=== PATIENT | female | born 1935 | race Caucasian/White ===

== ENCOUNTER 2021-10-01 18:16 | Emergency (ER) | payer MEDICARE ==
--- NOTE | 2021-10-01 18:22 | EDM.PDOC ---
<Wilmar Thompson - Last Filed: 10/01/21 23:51> ED HPI GENERAL MEDICAL PROBLEM - General Chief Complaint: General Stated Complaint: FELL IN PARKING LOT Time Seen by Provider: 10/01/21 18:21 - History of Present Illness INITIAL COMMENTS - FREE TEXT/NARRATIVE: History of present illness: [] My partner evaluated this patient. He found her outside on the ground beside her car door. He did not know exactly how long she was on the ground but she says she thinks she was possibly unconscious for 2 minutes after fall trying to get into her truck. She is visiting her who is patient in the hospital. See the hospital course for further assessment. The daughter came later and verified that this patient was slipping and had lost her balance or her knee had given out. She was hanging at the door when daughter got there. Patient had a little bit of low oxygen at 93% was tachycardic so Dr. Parks initiated work- up for the end of his shift. Review of systems: As per history of present illness and below otherwise all systems reviewed and negative. Past medical history: As per history of present illness and as reviewed below otherwise noncontributory. Surgical history: As per history of present illness and as reviewed below otherwise noncontributory. Social history: No reported history of drug or alcohol abuse. Family history: As per history of present illness and as reviewed below otherwise noncontributory. Physical exam: Constitutional - well developed, well-nourished and in no acute distress HEENT - normocephalic, no evidence of trauma - external nose and mouth normal - no mass in neck and no JVD - mucosae moist EYES - full EOM, PERRL, no icterus - no evidence of inflammation, injection, or drainage Respiratory - no respiratory distress, equal bilateral expansion, lungs clear to auscultation and no abnormal lung sounds Cardiovascular - Regular Rhythm with S1 and S2 appreciated and no murmur, gallop or rub. GI - abdomen soft without distension or organomegaly - normal bowel sounds - no guard or rebound Musculoskeletal no gross deformity of long bones or joints - no tenderness, swelling or edema Neurologic - Alert and oriented times four - CN II-XII grossly intact - motor sensory and coordination symmetrically normal Psychiatric - appropriate mood and affect with normal thought content Hematologic - No petechiae or purpura - mucosa appropriate color and sclera not pale - normal nail bed color and refill Integument - no rash or evidence of trauma - normal turgor Diagnostics: [] Therapeutics: [] Impression: [] Plan: [] Definitive disposition and diagnosis as appropriate pending reevaluation and review of above. - Related Data Allergies Allergy/AdvReac Type Severity Reaction Status Date / Time No Known Allergies Allergy Verified 10/01/21 18:33 Home Meds: Home Meds Fenofibrate 1 tab PO DAILY 11/13/15 [History] Omeprazole 1 tab PO DAILY 11/13/15 [History] PARoxetine HCl [Paroxetine HCl] 1 tab PO DAILY 11/13/15 [History] #1 Interpretation EKG Interpretation Comments: EKG performed 10/01/2021 at 7:29 PM shows a sinus tachycardia heart rate 104 UT 207 QT 482 axis -58 there is left ventricular hypertrophy and possible anterolateral infarct with loss of R waves. There is no prior for comparison. Impression no obvious acute injury but evidence of prior coronary vessel disease. Course - Re-Assessments/Exams Free Text/Narrative Re-Assessment/Exam: 10/01/21 19:38 Patient was assigned to me at the end of my partner shift at 7 PM. She was found on the parking lot outside of her vehicle. Her daughter says that she saw her mother hanging on she had slipped her knee giving out and she came around the car and when she got there her mother was on the ground. Her daughter is a witness that shows that she was not on the ground for more than 2 minutes. The patient thinks he may have hit her head and lost consciousness or lost consciousness after this exciting episode of losing her balance and holding onto the door handle for a bit Plan to complete the work-up initiated by my partner and then to move on from there. She may likely be discharged everything comes back okay.. 10/01/21 23:51 My clinical diagnosis is non-STEMI. Discussed with at [facility] because [facility] and [facility] had no beds. Dr. Aguilar wants the patient to have Apra spread and heparin and be sent to their telemetry unit for further study. Patient remained stable Departure - Departure Disposition: DC/Tfer to Acute Hospital 02 Condition: Good Clinical Impression: Non-STEMI (non-ST elevated myocardial infarction) - Discharge Information Referrals: Rhona Bean PA [Primary Care Provider] - Forms: ED Department Discharge <Kulwinder Parks - Last Filed: 10/02/21 18:02> ED HPI GENERAL MEDICAL PROBLEM - General Source of Information: Reports: Patient - History of Present Illness INITIAL COMMENTS - FREE TEXT/NARRATIVE: HPI: Patient presents when he was found outside on the ice outside of her car. Patient was visiting her in the hospital and states when she went to get into the car she could not get solid footing and she fell. She denies any head trauma. She is not complaining of the areas of pain. She states she just could not get up. She thinks she was down there just for a couple of minutes. Patient denies any chest pain or shortness of breath. No recent fevers or chills. No vomiting or diarrhea. No recent red or black stools. No lightheadedness or dizziness prior to the fall. She said she simply slipped CONSTITUTIONAL: well appearing in no acute distress SKIN: Warm, dry, and intact without rash HENT: Normocephalic, atraumatic, PULMONARY: clear to ausculation bilaterally. No rales, rhonchi, wheezing CARDIOVASCULAR: regular rate, No murmur, rubs, or gallops GASTROINTESTINAL: soft, nondistended, nontender NEUROLOGIC: normal speech, II-XII intact. light touch/5/5 power equal and symmetric in upper and lower extremities without deficit MUSCULOSKELETAL: no gross deformities, atraumatic. No evidence of head trauma. Midline cervical thoracic or lumbar vertebra without tenderness. No long bony tenderness PSYCHIATRIC: normal mood and affect ED course: Patient presented to the emergency department as outlined above. The patient did not have any traumatic injuries that were noted. There is no premonitory signs or symptoms preceding the fall. The patient however, did have some mild hypoxia and tachycardia thus work-up initiated.. SBAR 7pm Thompson pending workup, treatment, dispo Past Medical History Cardiovascular History: Reports: Other (See Below) Other Cardiovascular History: Hypertriglyceridemia Gastrointestinal History: Reports: Gastritis, GERD Musculoskeletal History: Reports: Fracture Other Musculoskeletal History: hx: fracture Right wrist closed reduction Psychiatric History: Reports: Depression - Past Surgical History GI Surgical History: Reports: Colonoscopy, EGD ED ROS GENERAL - Review of Systems Review Of Systems: See Below (see thompson dictation) Constitutional: Reports: No Symptoms ED EXAM, GENERAL - Physical Exam Exam: See Below Free Text/Narrative:: see dictation Course - Vital Signs Last Recorded V/S: Last Vital Signs Temp 35.7 C L 10/01/21 18:22 Pulse 101 H 10/01/21 23:41 Resp 18 10/01/21 23:41 BP 132/91 H 10/01/21 23:41 Pulse Ox 95 10/01/21 23:41 - Orders/Labs/Meds Orders: Active Orders 24 hr Category Date Time Status CULTURE URINE [MREF] Stat Lab 10/01/21 20:45 Received Saline Lock Insert [OM.PC] Stat Oth 10/01/21 18:54 Ordered Labs: Laboratory Tests 10/01/21 10/01/21 10/01/21 Range/Units 00:01 19:23 19:23 WBC (4.0-11.0) K/uL RBC (4.30-5.90) M/uL Hgb (12.0-16.0) g/dL Hct (36.0-46.0) % MCV (80.0-98.0) fL MCH (27.0-32.0) pg MCHC (31.0-37.0) g/dL RDW Std Deviation (28.0-62.0) fl RDW Coeff of Dylon (11.0-15.0) % Plt Count (150-400) K/uL MPV (7.40-12.00) fL Neut % (Auto) (48.0-80.0) % Lymph % (Auto) (16.0-40.0) % [place] % (Auto) (0.0-15.0) % Eos % (Auto) (0.0-7.0) % Baso % (Auto) (0.0-1.5) % Neut # (Auto) (1.4-5.7) K/uL Lymph # (Auto) (0.6-2.4) K/uL [place] # (Auto) (0.0-0.8) K/uL Eos # (Auto) (0.0-0.7) K/uL Baso # (Auto) (0.0-0.1) K/uL Nucleated RBC % /100WBC Nucleated RBCs # K/uL INR 0.99 APTT 23.8 (18.6-31.3) SEC Sodium 139 (136-145) mmol/L Potassium 4.2 (3.5-5.1) mmol/L Chloride 103 (98-107) mmol/L Carbon Dioxide 25.0 (21.0-32.0) mmol/L BUN 21 H (7.0-18.0) mg/dL Creatinine 1.2 H (0.6-1.0) mg/dL Est Cr Clr Drug Dosing 35.20 mL/min Estimated GFR (MDRD) 42.8 ml/min Glucose 116 H (74-106) mg/dL Calcium 9.3 (8.5-10.1) mg/dL Total Bilirubin 0.3 (0.2-1.0) mg/dL AST 21 (15-37) IU/L ALT 24 (14-63) IU/L Alkaline Phosphatase 35 L (46-116) U/L Creatine Kinase 110 (26-308) U/L Troponin I 0.371 H* (0.000-0.056) ng/mL B-Natriuretic Peptide (<100) PG/ML Total Protein 7.3 (6.4-8.2) g/dL Albumin 4.0 (3.4-5.0) g/dL Globulin 3.3 (2.6-4.0) g/dL Albumin/Globulin Ratio 1.2 (0.9-1.6) Urine Color Urine Appearance Urine pH (5.0-8.0) Ur Specific [place] (1.001-1.035) Urine Protein (NEGATIVE) mg/dL Urine Glucose (UA) (NEGATIVE) mg/dL Urine Ketones (NEGATIVE) mg/dL Urine Occult Blood (NEGATIVE) Urine Nitrite (NEGATIVE) Urine Bilirubin (NEGATIVE) Urine Urobilinogen (<2.0) EU/dL Ur Leukocyte Esterase (NEGATIVE) Urine RBC (0-2/HPF) Urine WBC (0-5/HPF) Ur Epithelial Cells (NONE-FEW) Urine Bacteria (NEGATIVE) SARS-CoV-2 RNA (JOHNNY) (NEGATIVE) 10/01/21 10/01/21 10/01/21 Range/Units 19:23 19:23 19:35 WBC 5.40 (4.0-11.0) K/uL RBC 4.85 (4.30-5.90) M/uL Hgb 15.0 (12.0-16.0) g/dL Hct 44.5 (36.0-46.0) % MCV 91.8 (80.0-98.0) fL MCH 30.9 (27.0-32.0) pg MCHC 33.7 (31.0-37.0) g/dL RDW Std Deviation 45.1 (28.0-62.0) fl RDW Coeff of [place] 14 (11.0-15.0) % Plt Count 209 (150-400) K/uL MPV 10.90 (7.40-12.00) fL Neut % (Auto) 72.2 (48.0-80.0) % Lymph % (Auto) 21.1 (16.0-40.0) % [place] % (Auto) 5.2 (0.0-15.0) % Eos % (Auto) 1.1 (0.0-7.0) % Baso % (Auto) 0.4 (0.0-1.5) % Neut # (Auto) 3.9 (1.4-5.7) K/uL Lymph # (Auto) 1.1 (0.6-2.4) K/uL [place] # (Auto) 0.3 (0.0-0.8) K/uL Eos # (Auto) 0.1 (0.0-0.7) K/uL Baso # (Auto) 0.0 (0.0-0.1) K/uL Nucleated RBC % 0.0 /100WBC Nucleated RBCs # 0 K/uL INR APTT (18.6-31.3) SEC Sodium (136-145) mmol/L Potassium (3.5-5.1) mmol/L Chloride (98-107) mmol/L Carbon Dioxide (21.0-32.0) mmol/L BUN (7.0-18.0) mg/dL Creatinine (0.6-1.0) mg/dL Est Cr Clr Drug Dosing mL/min Estimated GFR (MDRD) ml/min Glucose (74-106) mg/dL Calcium (8.5-10.1) mg/dL Total Bilirubin (0.2-1.0) mg/dL AST (15-37) IU/L ALT (14-63) IU/L Alkaline Phosphatase (46-116) U/L Creatine Kinase (26-308) U/L Troponin I (0.000-0.056) ng/mL B-Natriuretic Peptide 55 (<100) PG/ML Total Protein (6.4-8.2) g/dL Albumin (3.4-5.0) g/dL Globulin (2.6-4.0) g/dL Albumin/Globulin Ratio (0.9-1.6) Urine Color Urine Appearance Urine pH (5.0-8.0) Ur Specific [place] (1.001-1.035) Urine Protein (NEGATIVE) mg/dL Urine Glucose (UA) (NEGATIVE) mg/dL Urine Ketones (NEGATIVE) mg/dL Urine Occult Blood (NEGATIVE) Urine Nitrite (NEGATIVE) Urine Bilirubin (NEGATIVE) Urine Urobilinogen (<2.0) EU/dL Ur Leukocyte Esterase (NEGATIVE) Urine RBC (0-2/HPF) Urine WBC (0-5/HPF) Ur Epithelial Cells (NONE-FEW) Urine Bacteria (NEGATIVE) SARS-CoV-2 RNA (JOHNNY) NEGATIVE (NEGATIVE) 10/01/21 10/01/21 Range/Units 20:45 22:28 WBC (4.0-11.0) K/uL RBC (4.30-5.90) M/uL Hgb (12.0-16.0) g/dL Hct (36.0-46.0) % MCV (80.0-98.0) fL MCH (27.0-32.0) pg MCHC (31.0-37.0) g/dL RDW Std Deviation (28.0-62.0) fl RDW Coeff of Dylon (11.0-15.0) % Plt Count (150-400) K/uL MPV (7.40-12.00) fL Neut % (Auto) (48.0-80.0) % Lymph % (Auto) (16.0-40.0) % [place] % (Auto) (0.0-15.0) % Eos % (Auto) (0.0-7.0) % Baso % (Auto) (0.0-1.5) % Neut # (Auto) (1.4-5.7) K/uL Lymph # (Auto) (0.6-2.4) K/uL [place] # (Auto) (0.0-0.8) K/uL Eos # (Auto) (0.0-0.7) K/uL Baso # (Auto) (0.0-0.1) K/uL Nucleated RBC % /100WBC Nucleated RBCs # K/uL INR APTT (18.6-31.3) SEC Sodium (136-145) mmol/L Potassium (3.5-5.1) mmol/L Chloride (98-107) mmol/L Carbon Dioxide (21.0-32.0) mmol/L BUN (7.0-18.0) mg/dL Creatinine (0.6-1.0) mg/dL Est Cr Clr Drug Dosing mL/min Estimated GFR (MDRD) ml/min Glucose (74-106) mg/dL Calcium (8.5-10.1) mg/dL Total Bilirubin (0.2-1.0) mg/dL AST (15-37) IU/L ALT (14-63) IU/L Alkaline Phosphatase (46-116) U/L Creatine Kinase (26-308) U/L Troponin I 4.075 H* (0.000-0.056) ng/mL B-Natriuretic Peptide (<100) PG/ML Total Protein (6.4-8.2) g/dL Albumin (3.4-5.0) g/dL Globulin (2.6-4.0) g/dL Albumin/Globulin Ratio (0.9-1.6) Urine Color YELLOW Urine Appearance HAZY Urine pH 6.0 (5.0-8.0) Ur Specific [place] 1.025 (1.001-1.035) Urine Protein NEGATIVE (NEGATIVE) mg/dL Urine Glucose (UA) NEGATIVE (NEGATIVE) mg/dL Urine Ketones NEGATIVE (NEGATIVE) mg/dL Urine Occult Blood NEGATIVE (NEGATIVE) Urine Nitrite NEGATIVE (NEGATIVE) Urine Bilirubin NEGATIVE (NEGATIVE) Urine Urobilinogen 0.2 (<2.0) EU/dL Ur Leukocyte Esterase TRACE H (NEGATIVE) Urine RBC 0-3 (0-2/HPF) Urine WBC 0-2 (0-5/HPF) Ur Epithelial Cells OCCASIONAL (NONE-FEW) Urine Bacteria RARE (NEGATIVE) SARS-CoV-2 RNA (JOHNNY) (NEGATIVE) Meds: Medications Discontinued Medications Generic Name Dose Route Start Last Admin Trade Name Freq PRN Reason Stop Dose Admin Aspirin 324 mg 10/01/21 23:40 10/01/21 23:49 Aspirin 81 Mg Tab.Chew PO 10/01/21 23:41 324 mg ONETIME ONE Administration Heparin Sodium (Porcine) 4,860 units 10/01/21 23:49 10/02/21 00:04 Heparin Sodium 5,000 Units/Ml Vial IVPUSH 10/01/21 23:50 4,860 units .BOLUS ONE Administration Sodium Chloride 1,000 mls @ 999 mls/hr 10/01/21 18:56 10/01/21 19:31 Normal Saline IV 10/01/21 19:56 999 mls/hr .BOLUS ONE Administration Heparin Sodium/Sodium Chloride 500 mls @ 19.595 mls/hr 10/01/21 23:50 10/02/21 00:04 Heparin 25,000 Units In 1/2 Ns 500 Ml IV 10/03/21 01:20 12 units/kg/hr STAT STA 19.595 mls/hr Administration 12 UNITS/KG/HR Metoprolol Tartrate 5 mg/ 55 mls @ 100 mls/hr 10/02/21 00:17 Sodium Chloride IV 10/02/21 00:49 ONETIME ONE Sodium Chloride 10 ml 10/01/21 18:54 10/01/21 20:06 Sodium Chloride 0.9% 10 Ml Syringe FLUSH 10 ml ASDIRECTED PRN Administration Keep Vein Open Sodium Chloride 2.5 ml 10/01/21 18:54 10/01/21 20:06 Sodium Chloride 0.9% 2.5 Ml Syringe FLUSH 2.5 ml ASDIRECTED PRN Administration Keep Vein Open Departure - Departure Time of Disposition: 20:20 - My Orders Last 24 Hours: My Active Orders 10/01/21 18:54 Saline Lock Insert [OM.PC] Stat 10/01/21 20:45 CULTURE URINE [MREF] Stat - Assessment/Plan Last 24 Hours: My Active Orders 10/01/21 18:54 Saline Lock Insert [OM.PC] Stat 10/01/21 20:45 CULTURE URINE [MREF] Stat
[2021-10-01] MEDS ORDERED: Sodium Chloride 0.9% 2.5 ML Syringe FLUSH PRN (18:54)
[2021-10-01] MEDS ORDERED: Sodium Chloride 0.9% 10 ML Syringe FLUSH PRN (18:54)
[2021-10-01] MEDS ORDERED: Sodium Chloride 0.9% 1,000 ML IV ONE (18:56)
[2021-10-01 19:55] LABS: POTASSIUM,K 4.2 mmol/L (3.5-5.1)
--- NOTE | 2021-10-01 20:12 | CR ---
INDICATION: Chest pain TECHNIQUE: One-view chest FINDINGS: The lungs are clear. The heart, mediastinum and pulmonary vessels are of normal size. There is no evidence of pleural disease. Mild S-curve scoliosis to the right in the mid to lower thoracic spine with compensatory leftward curve in the lumbar spine. IMPRESSION: Negative chest. Scoliosis. Dictated by Pérez Randall MD @ 10/01/2021 8:11:14 PM (Electronically Signed)
[2021-10-01] MEDS ORDERED: Aspirin 81 MG Tab.Chew PO ONE (23:40)
[2021-10-01] MEDS ORDERED: Heparin Sodium 5,000 Units/ML Vial IVPUSH ONE (23:49)
[2021-10-01] MEDS ORDERED: Heparin Sodium/0.45% NaCl 500 ML IV STA (23:50)
[2021-10-02 00:06] VITALS: BP 132/91; PULSE 101
[2021-10-02] MEDS ORDERED: Metoprolol Tartrate 5 MG in Sodium Chloride 0.9% 50 ML IV ONE (00:17)
== END 2021-10-02 00:36 ==
LOC: MW.ED 18:16
DX: I21.4 Non-ST elevation (NSTEMI) myocardial infarction (principal); Z20.822 Contact with and (suspected) exposure to COVID-19
CPT/HCPCS: 36415; 71045; 80053; 81001; 82550; 83880; 84484; 85025; 85610; 85730; 87086; 93005; 96365; 99285; A9270; J1644; J7030; U0002

== ENCOUNTER 2021-10-09 10:15 | Observation (INO) | payer MEDICARE, OTHER ==
--- NOTE | 2021-10-09 10:22 | EDM.PDOC ---
ED HPI GENERAL MEDICAL PROBLEM - General Stated Complaint: PT" CANT CATCH HER BREATH", TROUBLE BREATHING Time Seen by Provider: 10/09/21 10:16 Source of Information: Reports: Patient History Limitations: Reports: No Limitations - History of Present Illness INITIAL COMMENTS - FREE TEXT/NARRATIVE: 86-year-old female past history recent ER visit w/ elevated troponin on October 01 recently discharged from [facility] presents for shortness of breath. She was at [facility] from 10/01-; underwent cardiac cath which was negative for ACS, diagnosed with Takotsubo myocarditis. Seen at outpatient clinic yesterday for follow-up and labs. Patient notes that throughout her hospitalization she never did have chest pain. She notes that she was feeling shortness of breath, generalized weakness. She notes that symptoms came back a couple of days ago with decreased appetite, shortness of breath, anxiety. She describes it as a sensation of not being able to take a deep breath on. She denies any associated chest pain, denies pleuritic chest pain. Denies lower extremity swelling or pain. Denies nausea or vomiting. Denies abdominal pain. Denies fevers, cough. - Related Data Allergies Allergy/AdvReac Type Severity Reaction Status Date / Time No Known Allergies Allergy Verified 10/09/21 10:23 Home Meds: Home Meds Fenofibrate 1 tab PO DAILY 11/13/15 [History] PARoxetine HCl [Paroxetine HCl] 1 tab PO DAILY 11/13/15 [History] Aspirin 81 mg PO DAILY 10/09/21 [History] Escitalopram Oxalate 10 mg PO DAILY 10/09/21 [History] Latanoprost/Pf [Latanoprost 0.005% Eye Drop] 1 dose PO DAILY 10/09/21 [History] Losartan Potassium 25 mg PO DAILY 10/09/21 [History] PARoxetine [Paxil] 20 mg PO DAILY 10/09/21 [History] Rosuvastatin [Crestor] 20 mg PO DAILY 10/09/21 [History] carvediloL [Carvedilol] 6.25 mg PO DAILY 10/09/21 [History] lisinopriL [Lisinopril] 2.5 mg PO DAILY 10/09/21 [History] traZODone 50 mg PO DAILY 10/09/21 [History] Past Medical History HEENT History: Reports: None Cardiovascular History: Reports: High Cholesterol, Hypertension, Other (See Below) Other Cardiovascular History: Hypertriglyceridemia Respiratory History: Reports: None Gastrointestinal History: Reports: Gastritis, GERD Genitourinary History: Reports: None TEMPERATURE INSPECTOR History: Reports: None Musculoskeletal History: Reports: Arthritis, Fracture Other Musculoskeletal History: hx: fracture Right wrist closed reduction Neurological History: Reports: None Psychiatric History: Reports: Depression Endocrine/Metabolic History: Reports: None Hematologic History: Reports: None Immunologic History: Reports: None Oncologic (Cancer) History: Reports: None Dermatologic History: Reports: None - Infectious Disease History Infectious Disease History: Reports: None - Past Surgical History Head Surgeries/Procedures: Reports: None HEENT Surgical History: Reports: None Cardiovascular Surgical History: Reports: None Respiratory Surgical History: Reports: None GI Surgical History: Reports: Colonoscopy, EGD Female Surgical History: Reports: None Endocrine Surgical History: Reports: None Neurological Surgical History: Reports: None Musculoskeletal Surgical History: Reports: None Oncologic Surgical History: Reports: None Dermatological Surgical History: Reports: None Social & Family History - Family History Family Medical History: No Pertinent Family History - Caffeine Use Caffeine Use: Reports: None ED ROS GENERAL - Review of Systems Review Of Systems: Comprehensive ROS is negative, except as noted in HPI. ED EXAM, GENERAL - Physical Exam Exam: See Below Exam Limited By: No Limitations General Appearance: Alert, WD/WN, No Apparent Distress Ears: Hearing Grossly Normal Throat/Mouth: Normal Voice, No Airway Compromise Head: Atraumatic, Normocephalic Respiratory/Chest: No Respiratory Distress, Lungs Clear, Normal Breath Sounds, No Accessory Muscle Use Cardiovascular: Normal Peripheral Pulses, Regular Rate, Rhythm, No Edema Extremities: Normal Inspection Neurological: Alert, Normal Cognition Psychiatric: Normal Affect, Normal Mood Skin Exam: Warm, Dry, Intact, Normal Color #1 Interpretation EKG Date: 10/09/21 Time: 10: Rhythm: NSR Rate (Beats/Min): 68 [place]: Normal P-Wave: Present QRS: Normal ST-T: Normal QT: Normal SD/PQ Interval: 172 Comparison: No Change EKG Interpretation Comments: no acute ischemic changes Course - Vital Signs Last Recorded V/S: Last Vital Signs Temp 97.1 F 10/09/21 10:23 Pulse 63 10/09/21 11:42 Resp 17 10/09/21 10:23 BP 127/74 10/09/21 11:42 Pulse Ox 94 L 10/09/21 11:42 - Orders/Labs/Meds Orders: Active Orders 24 hr Category Date Time Status Saline Lock Insert [OM.PC] Stat Oth 10/09/21 10:35 Ordered Labs: Laboratory Tests 10/09/21 10/09/21 10/09/21 Range/Units 10:37 10:37 10:37 WBC 4.88 (4.0-11.0) K/uL RBC 4.48 (4.30-5.90) M/uL Hgb 13.7 (12.0-16.0) g/dL Hct 40.8 (36.0-46.0) % MCV 91.1 (80.0-98.0) fL MCH 30.6 (27.0-32.0) pg MCHC 33.6 (31.0-37.0) g/dL RDW Std Deviation 45.2 (28.0-62.0) fl RDW Coeff of Dylon 14 (11.0-15.0) % Plt Count 244 (150-400) K/uL MPV 11.00 (7.40-12.00) fL Neut % (Auto) 74.8 (48.0-80.0) % Lymph % (Auto) 16.4 (16.0-40.0) % [place] % (Auto) 6.8 (0.0-15.0) % Eos % (Auto) 1.2 (0.0-7.0) % Baso % (Auto) 0.8 (0.0-1.5) % Neut # (Auto) 3.7 (1.4-5.7) K/uL Lymph # (Auto) 0.8 (0.6-2.4) K/uL [place] # (Auto) 0.3 (0.0-0.8) K/uL Eos # (Auto) 0.1 (0.0-0.7) K/uL Baso # (Auto) 0.0 (0.0-0.1) K/uL Nucleated RBC % 0.0 /100WBC Nucleated RBCs # 0 K/uL INR APTT (18.6-31.3) SEC D-Dimer, Quantitative (0.0-0.50) mg/L FEU Sodium 143 (136-145) mmol/L Potassium 3.5 (3.5-5.1) mmol/L Chloride 108 H (98-107) mmol/L Carbon Dioxide 19.7 L (21.0-32.0) mmol/L BUN 15 (7.0-18.0) mg/dL Creatinine 0.8 (0.6-1.0) mg/dL Est Cr Clr Drug Dosing 49.00 mL/min Estimated GFR (MDRD) > 60.0 ml/min Glucose 117 H (74-106) mg/dL Calcium 9.0 (8.5-10.1) mg/dL Magnesium 2.2 (1.8-2.4) mg/dL Troponin I 0.079 H* (0.000-0.056) ng/mL B-Natriuretic Peptide 1581 H (<100) PG/ML TSH, Ultra Sensitive 2.41 (0.36-3.74) uIU/mL Urine Color Urine Appearance Urine pH (5.0-8.0) Ur Specific Leonard (1.001-1.035) Urine Protein (NEGATIVE) mg/dL Urine Glucose (UA) (NEGATIVE) mg/dL Urine Ketones (NEGATIVE) mg/dL Urine Occult Blood (NEGATIVE) Urine Nitrite (NEGATIVE) Urine Bilirubin (NEGATIVE) Urine Urobilinogen (<2.0) EU/dL Ur Leukocyte Esterase (NEGATIVE) Urine RBC (0-2/HPF) Urine WBC (0-5/HPF) Ur Epithelial Cells (NONE-FEW) Urine Bacteria (NEGATIVE) Urine Mucus (NONE-MOD) Urine Yeast SARS-CoV-2 RNA (JOHNNY) (NEGATIVE) 10/09/21 10/09/21 10/09/21 Range/Units 10:37 10:37 10:53 WBC (4.0-11.0) K/uL RBC (4.30-5.90) M/uL Hgb (12.0-16.0) g/dL Hct (36.0-46.0) % MCV (80.0-98.0) fL MCH (27.0-32.0) pg MCHC (31.0-37.0) g/dL RDW Std Deviation (28.0-62.0) fl RDW Coeff of Dylon (11.0-15.0) % Plt Count (150-400) K/uL MPV (7.40-12.00) fL Neut % (Auto) (48.0-80.0) % Lymph % (Auto) (16.0-40.0) % [place] % (Auto) (0.0-15.0) % Eos % (Auto) (0.0-7.0) % Baso % (Auto) (0.0-1.5) % Neut # (Auto) (1.4-5.7) K/uL Lymph # (Auto) (0.6-2.4) K/uL [place] # (Auto) (0.0-0.8) K/uL Eos # (Auto) (0.0-0.7) K/uL Baso # (Auto) (0.0-0.1) K/uL Nucleated RBC % /100WBC Nucleated RBCs # K/uL INR 1.01 APTT 23.4 (18.6-31.3) SEC D-Dimer, Quantitative 4.03 H (0.0-0.50) mg/L FEU Sodium (136-145) mmol/L Potassium (3.5-5.1) mmol/L Chloride (98-107) mmol/L Carbon Dioxide (21.0-32.0) mmol/L BUN (7.0-18.0) mg/dL Creatinine (0.6-1.0) mg/dL Est Cr Clr Drug Dosing mL/min Estimated GFR (MDRD) ml/min Glucose (74-106) mg/dL Calcium (8.5-10.1) mg/dL Magnesium (1.8-2.4) mg/dL Troponin I (0.000-0.056) ng/mL B-Natriuretic Peptide (<100) PG/ML TSH, Ultra Sensitive (0.36-3.74) uIU/mL Urine Color Urine Appearance Urine pH (5.0-8.0) Ur Specific Leonard (1.001-1.035) Urine Protein (NEGATIVE) mg/dL Urine Glucose (UA) (NEGATIVE) mg/dL Urine Ketones (NEGATIVE) mg/dL Urine Occult Blood (NEGATIVE) Urine Nitrite (NEGATIVE) Urine Bilirubin (NEGATIVE) Urine Urobilinogen (<2.0) EU/dL Ur Leukocyte Esterase (NEGATIVE) Urine RBC (0-2/HPF) Urine WBC (0-5/HPF) Ur Epithelial Cells (NONE-FEW) Urine Bacteria (NEGATIVE) Urine Mucus (NONE-MOD) Urine Yeast SARS-CoV-2 RNA (JOHNNY) NEGATIVE (NEGATIVE) 10/09/21 Range/Units 12:47 WBC (4.0-11.0) K/uL RBC (4.30-5.90) M/uL Hgb (12.0-16.0) g/dL Hct (36.0-46.0) % MCV (80.0-98.0) fL MCH (27.0-32.0) pg MCHC (31.0-37.0) g/dL RDW Std Deviation (28.0-62.0) fl RDW Coeff of Dylon (11.0-15.0) % Plt Count (150-400) K/uL MPV (7.40-12.00) fL Neut % (Auto) (48.0-80.0) % Lymph % (Auto) (16.0-40.0) % [place] % (Auto) (0.0-15.0) % Eos % (Auto) (0.0-7.0) % Baso % (Auto) (0.0-1.5) % Neut # (Auto) (1.4-5.7) K/uL Lymph # (Auto) (0.6-2.4) K/uL [place] # (Auto) (0.0-0.8) K/uL Eos # (Auto) (0.0-0.7) K/uL Baso # (Auto) (0.0-0.1) K/uL Nucleated RBC % /100WBC Nucleated RBCs # K/uL INR APTT (18.6-31.3) SEC D-Dimer, Quantitative (0.0-0.50) mg/L FEU Sodium (136-145) mmol/L Potassium (3.5-5.1) mmol/L Chloride (98-107) mmol/L Carbon Dioxide (21.0-32.0) mmol/L BUN (7.0-18.0) mg/dL Creatinine (0.6-1.0) mg/dL Est Cr Clr Drug Dosing mL/min Estimated GFR (MDRD) ml/min Glucose (74-106) mg/dL Calcium (8.5-10.1) mg/dL Magnesium (1.8-2.4) mg/dL Troponin I (0.000-0.056) ng/mL B-Natriuretic Peptide (<100) PG/ML TSH, Ultra Sensitive (0.36-3.74) uIU/mL Urine Color YELLOW Urine Appearance SLT CLOUDY Urine pH 5.5 (5.0-8.0) Ur Specific Leonard >= 1.030 (1.001-1.035) Urine Protein TRACE H (NEGATIVE) mg/dL Urine Glucose (UA) NEGATIVE (NEGATIVE) mg/dL Urine Ketones NEGATIVE (NEGATIVE) mg/dL Urine Occult Blood TRACE-INTACT H (NEGATIVE) Urine Nitrite NEGATIVE (NEGATIVE) Urine Bilirubin SMALL H (NEGATIVE) Urine Urobilinogen 2.0 H (<2.0) EU/dL Ur Leukocyte Esterase TRACE H (NEGATIVE) Urine RBC 0-3 (0-2/HPF) Urine WBC 15-20 (0-5/HPF) Ur Epithelial Cells FEW (NONE-FEW) Urine Bacteria 1+ H (NEGATIVE) Urine Mucus MODERATE (NONE-MOD) Urine Yeast FEW SARS-CoV-2 RNA (JOHNNY) (NEGATIVE) Meds: Medications Discontinued Medications Generic Name Dose Route Start Last Admin Trade Name Freq PRN Reason Stop Dose Admin Enoxaparin Sodium 75 mg 10/09/21 13:28 Enoxaparin 100 Mg/1 Ml Syringe 1 mg/kg (75 mg) 10/09/21 13:29 SUBCUT STAT STA Furosemide 20 mg 10/09/21 13:32 Furosemide 20 Mg/2 Ml Vial IVPUSH 10/09/21 13:33 ONETIME ONE Lorazepam 0.5 mg 10/09/21 10:35 10/09/21 10:50 Lorazepam 2 Mg/Ml Sdv IVPUSH 10/09/21 10:36 0.5 mg ONETIME ONE Administration - Re-Assessments/Exams Free Text/Narrative Re-Assessment/Exam: 10/09/21 10:39 We will get broad labs, chest x-ray. Will give small dose of Ativan and reassess. 10/09/21 11:09 D-dimer is markedly elevated. Will get CTA imaging of the chest to rule out pulmonary embolism. 10/09/21 13:34 CTA imaging shows b/l pulmonary emboli as well as new b/l pleural effusions. Lovenox ordered. Lasix 20mg IV ordered. Will admit to medical observation unit. Departure - Departure Time of Disposition: 13:34 Disposition: Refer to Observation Condition: Good Clinical Impression: Pulmonary embolism Qualifiers: Pulmonary embolism type: unspecified Chronicity: acute Acute cor pulmonale presence: without acute cor pulmonale Qualified Code(s): I26.99 - Other pulmonary embolism without acute cor pulmonale Pulmonary edema Qualifiers: Chronicity: acute Qualified Code(s): J81.0 - Acute pulmonary edema - Discharge Information Sepsis Event Note (ED) - Focused Exam Vital Signs: Vital Signs Temp Pulse Resp BP Pulse Ox 10/09/21 11:42 63 127/74 94 L 10/09/21 10:23 97.1 F 70 17 149/80 H 97 - My Orders Last 24 Hours: My Active Orders 10/09/21 10:35 Saline Lock Insert [OM.PC] Stat - Assessment/Plan Last 24 Hours: My Active Orders 10/09/21 10:35 Saline Lock Insert [OM.PC] Stat
[2021-10-09] MEDS ORDERED: LORazepam 2 MG/ML SDV IVPUSH ONE (10:35)
[2021-10-09 11:18] LABS: BLOOD UREA NITROGEN,BUN 15 mg/dL (7.0-18.0); CARBON DIOXIDE,CO2 19.7 mmol/L (21.0-32.0); CHLORIDE,CL 108 mmol/L (98-107); GLUCOSE RANDOM 117 mg/dL (74-106); POTASSIUM,K 3.5 mmol/L (3.5-5.1); SODIUM,NA 143 mmol/L (136-145)
--- NOTE | 2021-10-09 11:21 | CR ---
INDICATION: Chest pain COMPARISON: October 01, 2021 TECHNIQUE: Single View of the chest FINDINGS: TUBES AND LINES: None. HEART AND MEDIASTINUM: Heart size top-normal but unchanged. LUNGS AND PLEURAL SPACES: Bibasilar airspace disease, left greater than right and trace effusions, left greater than right.These findings are new OSSEOUS STRUCTURES: Demineralization. Degenerative change. Scoliosis. IMPRESSION: Bibasilar airspace disease, left greater than right. Trace effusions, left greater than right. The lung and pleural findings are new. Dictated by Kristopher Duran MD @ 10/09/2021 11:18:42 AM (Electronically Signed)
--- NOTE | 2021-10-09 13:24 | CT ---
INDICATION: Shortness of breath, elevated D-dimer. TECHNIQUE: CT chest PE was acquired with 75 cc Isovue 370 IV contrast. COMPARISON: Chest radiograph earlier same day dated 10/09/2021. FINDINGS: Heart and vasculature: No significant cardiomegaly. Small to moderate-sized pericardial effusion. Multiple segmental pulmonary emboli within the right lung, the most prominent of which is in the right upper lobe with slight extension into the lobar pulmonary artery. Scattered subsegmental pulmonary emboli are also present in the lingula and left lower lobe. No evidence of right heart strain. Lungs and pleura: Small to moderate-sized bilateral pleural effusions, right slightly greater than left. Mild paraseptal emphysematous changes. No evidence of pulmonary infarct. Thyroid and lower neck: The right thyroid gland is atrophic. Heterogeneous left thyroid nodules, largest measuring approximately 2.0 cm. Mediastinum/jean: No lymphadenopathy. Chest wall: No axillary lymphadenopathy. Upper abdomen: Diffuse hepatic steatosis. Small hiatal hernia. Bones: Extensive multilevel degenerative changes of the spine. Compression deformity of a mid thoracic vertebral body is likely chronic. IMPRESSION: 1. Multiple pulmonary emboli, most prominent of which is in a right upper lobe segmental pulmonary artery. No evidence of right heart strain or pulmonary infarct. 2. Small to moderate sized bilateral pleural effusions, right greater than left. Small to moderate sized pericardial effusion. 3. Heterogeneous left thyroid nodules measuring up to 2.0 cm. Recommend further evaluation with thyroid ultrasound on a nonemergent basis. Case discussed with Dr. Peterson at 13:20 on 10/09/2021. Please note that all CT scans at this facility use dose modulation, iterative reconstruction, and/or weight-based dosing when appropriate to reduce radiation dose to as low as reasonably achievable. Dictated by Layla Sanders MD @ 10/09/2021 1:23:42 PM (Electronically Signed)
[2021-10-09] MEDS ORDERED: Enoxaparin 100 MG/1 ML Syringe SUBCUT STA (13:28)
[2021-10-09] MEDS ORDERED: Furosemide 20 MG/2 ML VIAL IVPUSH ONE ×2 (13:32→15:30)
[2021-10-09] MEDS ORDERED: Polyethylene Glycol 3350 Powder 17 GM Packet PO PRN (15:29)
[2021-10-09] MEDS ORDERED: Temazepam 15 MG Cap PO PRN (15:29)
[2021-10-09] MEDS ORDERED: Acetaminophen/HYDROcodone 325-5 MG Tab PO PRN (15:29)
[2021-10-09] MEDS ORDERED: Ondansetron 4 MG/2 ML SDV IVPUSH PRN (15:29)
--- NOTE | 2021-10-09 15:51 | PCM.HP.2 ---
H&P History of Present Illness - General Date of Service: 10/09/21 Admit Problem/Dx: Admission Diagnosis/Problem Admission Diagnosis/Problem Pulmonary embolism Source of Information: Patient, Old Records History Limitations: Reports: No Limitations - History of Present Illness Initial Comments - Free Text/Narative: Patient is 86-year-old who is self referred today for shortness of breath. She had been transferred to [facility] from our emergency room on 10/01/2021 for precordial chest pain. Coronary angiography had been performed at [facility] yielding no evidence of coronary artery occlusion. 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 Overnight, she developed progressive dyspnea at rest and reported to our ER today, where she was found to have an elevated D-dimer of around 4.03 and several bilateral subsegmental pulmonary emboli. Troponin had declined to 0.079 from 4.075 on 10/01/2021. Today also, Pro-BNP was 1581 and COVID-19 JOHNNY negative. IV furosemide 20 mg was administered and enoxaparin 100 mg SQ given. At this time, she feels better and is without dyspnea or hypoxia. [facility] ED MD has requested that we admit her for medical observation and the initiation of oral Eliquis. Onset of Symptoms: Reports: Today - Related Data Allergies/Adverse Reactions: Allergies Allergy/AdvReac Type Severity Reaction Status Date / Time No Known Allergies Allergy Verified 10/09/21 10:23 Home Medications: Home Meds Fenofibrate 145 mg PO DAILY 11/13/15 [History] PARoxetine HCl [Paroxetine HCl] 1 tab PO DAILY 11/13/15 [History] Aspirin 81 mg PO DAILY 10/09/21 [History] Escitalopram Oxalate 10 mg PO DAILY 10/09/21 [History] Latanoprost/Pf [Latanoprost 0.005% Eye Drop] 1 dose PO DAILY 10/09/21 [History] Losartan Potassium 25 mg PO DAILY 10/09/21 [History] PARoxetine [Paxil] 20 mg PO DAILY 10/09/21 [History] Rosuvastatin [Crestor] 20 mg PO DAILY 10/09/21 [History] carvediloL [Carvedilol] 6.25 mg PO BIDMEALS 10/09/21 [History] lisinopriL [Lisinopril] 2.5 mg PO DAILY 10/09/21 [History] traZODone 50 mg PO BEDTIME 10/09/21 [History] Past Medical History HEENT History: Reports: None Cardiovascular History: Reports: Cardiomyopathy, High Cholesterol, Hypertension, Other (See Below) Other Cardiovascular History: Hypertriglyceridemia Respiratory History: Reports: None Gastrointestinal History: Reports: Colon Polyp, Diverticulosis, Gastritis, GERD Other Gastrointestinal History: Colon polyps Genitourinary History: Reports: None, Urinary Incontinence [employer] History: Reports: None LMP (Approximate): Menopausal Musculoskeletal History: Reports: Arthritis, Fracture Other Musculoskeletal History: hx: fracture Right wrist closed reduction Neurological History: Reports: None Psychiatric History: Reports: Depression Endocrine/Metabolic History: Reports: None, Other (See Below) (Borderline hyperglycemia) Hematologic History: Reports: None, Anemia Other Hematologic History: Anemia following surgery Immunologic History: Reports: None Oncologic (Cancer) History: Reports: None Dermatologic History: Reports: None - Infectious Disease History Infectious Disease History: Reports: None - Past Surgical History Head Surgeries/Procedures: Reports: None HEENT Surgical History: Reports: None Cardiovascular Surgical History: Reports: None Other Cardiovascular Surgeries/Procedures: broken heart syndrome Respiratory Surgical History: Reports: None GI Surgical History: Reports: Colonoscopy, EGD Female Surgical History: Reports: None Endocrine Surgical History: Reports: None Neurological Surgical History: Reports: None Musculoskeletal Surgical History: Reports: None Oncologic Surgical History: Reports: None Dermatological Surgical History: Reports: None Social & Family History - Family History Family Medical History: No Pertinent Family History - Tobacco Use Tobacco Use Status *Q: Never Tobacco User - Caffeine Use Caffeine Use: Reports: None - Recreational Drug Use Recreational Drug Use: No H&P Review of Systems - Review of Systems: Review Of Systems: See Below General: Reports: Weakness HEENT: Reports: Glasses Pulmonary: Reports: Shortness of Breath Cardiovascular: Reports: Chest Pain, Dyspnea on Exertion Gastrointestinal: Reports: No Symptoms Genitourinary: Reports: No Symptoms Musculoskeletal: Reports: Joint Pain Skin: Reports: No Symptoms Psychiatric: Reports: No Symptoms Neurological: Reports: No Symptoms Hematologic/Lymphatic: Reports: No Symptoms Immunologic: Reports: No Symptoms Exam - Exam Exam: See Below - Vital Signs Vital Signs: Last Vital Signs Temp 97.1 F 10/09/21 10:23 Pulse 69 10/09/21 13:53 Resp 17 10/09/21 10:23 BP 135/68 10/09/21 13:53 Pulse Ox 96 10/09/21 13:53 Weight: 160 lb - Exam General: Alert, Oriented, Cooperative HEENT: Conjunctiva Clear, Mucosa Moist & [place] Neck: Supple, Trachea Midline Lungs: Clear to Auscultation, Normal Respiratory Effort Cardiovascular: Regular Rate, Regular Rhythm GI/Abdominal Exam: Normal Bowel Sounds, Soft, Non-Tender (Female) Exam: Deferred Rectal (Female) Exam: Deferred Back Exam: Normal Inspection Extremities: Normal Inspection, No Pedal Edema Peripheral Pulses: 2+: Carotid (L), Carotid (R), Radial (L), Radial (R) Skin: Warm, Dry, Intact Neurological: Cranial Nerves Intact, Normal Gait, Normal Speech Neuro Extensive - Mental Status: Alert, Oriented x3, Normal Mood/Affect, Normal Cognition, Memory Intact Neuro Extensive - Motor, Sensory, Reflexes: CN II-XII Intact Psychiatric: Alert, Normal Affect, Normal Mood - Patient Data Lab Results Last 24 hrs: Laboratory Results - last 24 hr 10/09/21 10/09/21 10/09/21 Range/Units 10:37 10:37 10:37 WBC 4.88 (4.0-11.0) K/uL RBC 4.48 (4.30-5.90) M/uL Hgb 13.7 (12.0-16.0) g/dL Hct 40.8 (36.0-46.0) % MCV 91.1 (80.0-98.0) fL MCH 30.6 (27.0-32.0) pg MCHC 33.6 (31.0-37.0) g/dL RDW Std Deviation 45.2 (28.0-62.0) fl RDW Coeff of Dylon 14 (11.0-15.0) % Plt Count 244 (150-400) K/uL MPV 11.00 (7.40-12.00) fL Neut % (Auto) 74.8 (48.0-80.0) % Lymph % (Auto) 16.4 (16.0-40.0) % [place] % (Auto) 6.8 (0.0-15.0) % Eos % (Auto) 1.2 (0.0-7.0) % Baso % (Auto) 0.8 (0.0-1.5) % Neut # (Auto) 3.7 (1.4-5.7) K/uL Lymph # (Auto) 0.8 (0.6-2.4) K/uL [place] # (Auto) 0.3 (0.0-0.8) K/uL Eos # (Auto) 0.1 (0.0-0.7) K/uL Baso # (Auto) 0.0 (0.0-0.1) K/uL Nucleated RBC % 0.0 /100WBC Nucleated RBCs # 0 K/uL INR APTT (18.6-31.3) SEC D-Dimer, Quantitative (0.0-0.50) mg/L FEU Sodium 143 (136-145) mmol/L Potassium 3.5 (3.5-5.1) mmol/L Chloride 108 H (98-107) mmol/L Carbon Dioxide 19.7 L (21.0-32.0) mmol/L BUN 15 (7.0-18.0) mg/dL Creatinine 0.8 (0.6-1.0) mg/dL Est Cr Clr Drug Dosing 49.00 mL/min Estimated GFR (MDRD) > 60.0 ml/min Glucose 117 H (74-106) mg/dL Calcium 9.0 (8.5-10.1) mg/dL Magnesium 2.2 (1.8-2.4) mg/dL Troponin I 0.079 H* (0.000-0.056) ng/mL B-Natriuretic Peptide 1581 H (<100) PG/ML TSH, Ultra Sensitive 2.41 (0.36-3.74) uIU/mL Urine Color Urine Appearance Urine pH (5.0-8.0) Ur Specific Peak (1.001-1.035) Urine Protein (NEGATIVE) mg/dL Urine Glucose (UA) (NEGATIVE) mg/dL Urine Ketones (NEGATIVE) mg/dL Urine Occult Blood (NEGATIVE) Urine Nitrite (NEGATIVE) Urine Bilirubin (NEGATIVE) Urine Urobilinogen (<2.0) EU/dL Ur Leukocyte Esterase (NEGATIVE) Urine RBC (0-2/HPF) Urine WBC (0-5/HPF) Ur Epithelial Cells (NONE-FEW) Urine Bacteria (NEGATIVE) Urine Mucus (NONE-MOD) Urine Yeast SARS-CoV-2 RNA (JOHNNY) (NEGATIVE) 10/09/21 10/09/21 10/09/21 Range/Units 10:37 10:37 10:53 WBC (4.0-11.0) K/uL RBC (4.30-5.90) M/uL Hgb (12.0-16.0) g/dL Hct (36.0-46.0) % MCV (80.0-98.0) fL MCH (27.0-32.0) pg MCHC (31.0-37.0) g/dL RDW Std Deviation (28.0-62.0) fl RDW Coeff of Dylon (11.0-15.0) % Plt Count (150-400) K/uL MPV (7.40-12.00) fL Neut % (Auto) (48.0-80.0) % Lymph % (Auto) (16.0-40.0) % [place] % (Auto) (0.0-15.0) % Eos % (Auto) (0.0-7.0) % Baso % (Auto) (0.0-1.5) % Neut # (Auto) (1.4-5.7) K/uL Lymph # (Auto) (0.6-2.4) K/uL [place] # (Auto) (0.0-0.8) K/uL Eos # (Auto) (0.0-0.7) K/uL Baso # (Auto) (0.0-0.1) K/uL Nucleated RBC % /100WBC Nucleated RBCs # K/uL INR 1.01 APTT 23.4 (18.6-31.3) SEC D-Dimer, Quantitative 4.03 H (0.0-0.50) mg/L FEU Sodium (136-145) mmol/L Potassium (3.5-5.1) mmol/L Chloride (98-107) mmol/L Carbon Dioxide (21.0-32.0) mmol/L BUN (7.0-18.0) mg/dL Creatinine (0.6-1.0) mg/dL Est Cr Clr Drug Dosing mL/min Estimated GFR (MDRD) ml/min Glucose (74-106) mg/dL Calcium (8.5-10.1) mg/dL Magnesium (1.8-2.4) mg/dL Troponin I (0.000-0.056) ng/mL B-Natriuretic Peptide (<100) PG/ML TSH, Ultra Sensitive (0.36-3.74) uIU/mL Urine Color Urine Appearance Urine pH (5.0-8.0) Ur Specific Peak (1.001-1.035) Urine Protein (NEGATIVE) mg/dL Urine Glucose (UA) (NEGATIVE) mg/dL Urine Ketones (NEGATIVE) mg/dL Urine Occult Blood (NEGATIVE) Urine Nitrite (NEGATIVE) Urine Bilirubin (NEGATIVE) Urine Urobilinogen (<2.0) EU/dL Ur Leukocyte Esterase (NEGATIVE) Urine RBC (0-2/HPF) Urine WBC (0-5/HPF) Ur Epithelial Cells (NONE-FEW) Urine Bacteria (NEGATIVE) Urine Mucus (NONE-MOD) Urine Yeast SARS-CoV-2 RNA (JOHNNY) NEGATIVE (NEGATIVE) 10/09/21 Range/Units 12:47 WBC (4.0-11.0) K/uL RBC (4.30-5.90) M/uL Hgb (12.0-16.0) g/dL Hct (36.0-46.0) % MCV (80.0-98.0) fL MCH (27.0-32.0) pg MCHC (31.0-37.0) g/dL RDW Std Deviation (28.0-62.0) fl RDW Coeff of Dylon (11.0-15.0) % Plt Count (150-400) K/uL MPV (7.40-12.00) fL Neut % (Auto) (48.0-80.0) % Lymph % (Auto) (16.0-40.0) % [place] % (Auto) (0.0-15.0) % Eos % (Auto) (0.0-7.0) % Baso % (Auto) (0.0-1.5) % Neut # (Auto) (1.4-5.7) K/uL Lymph # (Auto) (0.6-2.4) K/uL [place] # (Auto) (0.0-0.8) K/uL Eos # (Auto) (0.0-0.7) K/uL Baso # (Auto) (0.0-0.1) K/uL Nucleated RBC % /100WBC Nucleated RBCs # K/uL INR APTT (18.6-31.3) SEC D-Dimer, Quantitative (0.0-0.50) mg/L FEU Sodium (136-145) mmol/L Potassium (3.5-5.1) mmol/L Chloride (98-107) mmol/L Carbon Dioxide (21.0-32.0) mmol/L BUN (7.0-18.0) mg/dL Creatinine (0.6-1.0) mg/dL Est Cr Clr Drug Dosing mL/min Estimated GFR (MDRD) ml/min Glucose (74-106) mg/dL Calcium (8.5-10.1) mg/dL Magnesium (1.8-2.4) mg/dL Troponin I (0.000-0.056) ng/mL B-Natriuretic Peptide (<100) PG/ML TSH, Ultra Sensitive (0.36-3.74) uIU/mL Urine Color YELLOW Urine Appearance SLT CLOUDY Urine pH 5.5 (5.0-8.0) Ur Specific Peak >= 1.030 (1.001-1.035) Urine Protein TRACE H (NEGATIVE) mg/dL Urine Glucose (UA) NEGATIVE (NEGATIVE) mg/dL Urine Ketones NEGATIVE (NEGATIVE) mg/dL Urine Occult Blood TRACE-INTACT H (NEGATIVE) Urine Nitrite NEGATIVE (NEGATIVE) Urine Bilirubin SMALL H (NEGATIVE) Urine Urobilinogen 2.0 H (<2.0) EU/dL Ur Leukocyte Esterase TRACE H (NEGATIVE) Urine RBC 0-3 (0-2/HPF) Urine WBC 15-20 (0-5/HPF) Ur Epithelial Cells FEW (NONE-FEW) Urine Bacteria 1+ H (NEGATIVE) Urine Mucus MODERATE (NONE-MOD) Urine Yeast FEW SARS-CoV-2 RNA (JOHNNY) (NEGATIVE) Result Diagrams: 10/09/21 10:37 10/09/21 10:37 Sepsis Event Note - Evaluation Sepsis Screening Result: No Definite Risk - Focused Exam Vital Signs: Vital Signs Temp Pulse Resp BP Pulse Ox 10/09/21 13:53 69 135/68 96 10/09/21 11:42 63 127/74 94 L 10/09/21 10:23 97.1 F 70 17 149/80 H 97 - Problem List (1) Pulmonary embolism SNOMED Code(s): 63694532 ICD Code: I26.99 - OTHER PULMONARY EMBOLISM WITHOUT ACUTE COR PULMONALE Status: Acute Current Visit: Yes Qualifiers: Pulmonary embolism type: other Chronicity: acute Acute cor pulmonale presence: without acute cor pulmonale Qualified Code(s): I26.99 - Other pulmonary embolism without acute cor pulmonale (2) Takotsubo cardiomyopathy SNOMED Code(s): 641918022 ICD Code: I51.81 - TAKOTSUBO SYNDROME Status: Acute Priority: High Current Visit: Yes (3) Elevated brain natriuretic peptide (BNP) level SNOMED Code(s): 725089439, 410981169 ICD Code: R79.89 - OTHER SPECIFIED ABNORMAL FINDINGS OF BLOOD CHEMISTRY Status: Acute Priority: Medium Current Visit: Yes Onset Date: ~10/09/21 Problem List Initiated/Reviewed/Updated: Yes Orders Last 24hrs: Active Orders 24 hr Category Date Time Status Patient Status [ADT] Routine ADT 10/09/21 15:23 Ordered Antiembolic Devices [RC] PER UNIT ROUTINE Care 10/09/21 15:30 Ordered Cardiac Monitoring [RC] CONTINUOUS Care 10/09/21 15:23 Ordered Height and Weight [RC] DAILY Care 10/09/21 15:22 Ordered Intake and Output [RC] QSHIFT Care 10/09/21 15:23 Ordered Notify Provider Vital Signs [RC] ASDIRECTED Care 10/09/21 15:24 Ordered Oxygen Therapy [RC] PRN Care 10/09/21 15:23 Ordered Pulse Oximetry [RC] PRN Care 10/09/21 15:23 Ordered Telemetry Monitoring [Cardiac Monitoring] [RC] . Care 10/09/21 14:36 Active DIRECTED Up With Assistance [RC] ASDIRECTED Care 10/09/21 15:22 Ordered VTE/DVT Education [RC] PER UNIT ROUTINE Care 10/09/21 15:23 Ordered Vital Signs [RC] Q4H Care 10/09/21 15:23 Ordered Regular Diet [DIET] Diet 10/09/21 Dinner Ordered MAGNESIUM [CHEM] AM Lab 10/10/21 05:11 Ordered Acetaminophen/HYDROcodone [[place] 325-5 MG] Med 10/09/21 15:29 Ordered 1 tab PO Q4H PRN Apixaban [Eliquis] Med 10/09/21 17:00 Ordered 10 mg PO BID Escitalopram [Lexapro] Med 10/10/21 09:00 Ordered 10 mg PO DAILY Fenofibrate [Fenofibrate] Med 10/10/21 09:00 Ordered 1 tab PO DAILY Latanoprost/Pf [Latanoprost 0.005% Eye Drop] Med 10/10/21 09:00 Ordered 1 dose PO DAILY Losartan Potassium Med 10/10/21 09:00 Ordered 25 mg PO DAILY Ondansetron [Zofran] Med 10/09/21 15:29 Ordered 4 mg IVPUSH Q4H PRN Rosuvastatin Med 10/09/21 21:00 Ordered 20 mg PO DAILY Temazepam [Restoril] Med 10/09/21 15:29 Ordered 15 mg PO BEDTIME PRN carvediloL [Coreg] Med 10/09/21 21:00 Ordered 6.25 mg PO DAILY polyethylene glycoL 3350 [MiraLAX] Med 10/09/21 15:29 Ordered 17 gm PO DAILY PRN traZODone Med 10/09/21 21:00 Ordered 50 mg PO BEDTIME Saline Lock Insert [OM.PC] Stat Oth 10/09/21 10:35 Ordered Sequential Compression Device [OM.PC] Per Unit Routine Oth 10/09/21 15:29 Ordered Resuscitation Status Routine Resus Stat 10/09/21 15:22 Ordered Medication Orders Hydrocodone Bitart/Acetaminophen (Acetaminophen/Hydrocodone 325-5 Mg Tab) 1 tab PO Q4H PRN PRN Reason: Pain (moderate 4-6) Apixaban (Apixaban 5 Mg Tab) 10 mg PO BID SHWETA Stop: 10/16/21 22:01 Carvedilol (Carvedilol 6.25 Mg Tab) 6.25 mg PO BID SHWETA Escitalopram Oxalate (Escitalopram 10 Mg Tab) 10 mg PO DAILY SHWETA Losartan Potassium (Losartan 50 Mg Tab) 25 mg PO DAILY SHWETA Ondansetron HCl (Ondansetron 4 Mg/2 Ml Sdv) 4 mg IVPUSH Q4H PRN Fenofibrate 145 Mg 1 each PO DAILY SHWETA Latanoprost (Opthalmic Drops) 1 each EYEBOTH BEDTIME SHWETA Polyethylene Glycol (Polyethylene Glycol 3350 Powder 17 Gm Packet) 17 gm PO DAILY PRN PRN Reason: Constipation Rosuvastatin Calcium (Rosuvastatin 10 Mg Tab) 20 mg PO BEDTIME SHWETA Temazepam (Temazepam 15 Mg Cap) 15 mg PO BEDTIME PRN PRN Reason: Sleep Trazodone HCl (Trazodone 50 Mg Tab) 50 mg PO BEDTIME SHWETA Assessment/Plan Comment:: +Pulmonary thromboembolism, subsegmetal, bilateral - Mortality Measure Prognosis:: Good
[2021-10-09] MEDS ORDERED: Furosemide 20 MG in Sodium Chloride 0.9% 50 ML IV ONE (18:00)
[2021-10-09] MEDS ORDERED: Iopamidol 755 MG/ML 500 ML Multipack Bottle IVPUSH STA (18:48)
[2021-10-09] MEDS: Carvedilol 6.25 MG Tab PO SCH (20:45)
[2021-10-09] MEDS ORDERED: LATANOPROST OPTHALMIC EYEBOTH SCH (21:00)
[2021-10-09] MEDS ORDERED: Rosuvastatin 10 MG Tab PO SCH (21:00)
[2021-10-09] MEDS ORDERED: traZODone 50 MG Tab PO SCH (21:00)
[2021-10-09] MEDS: Apixaban 5 MG Tab PO SCH (21:05)
[2021-10-09] MEDS ORDERED: Apixaban 5 MG Tab PO SCH (22:00)
[2021-10-10 08:13] VITALS: BP 102/49; PULSE 61
[2021-10-10] MEDS ORDERED: FENOFIBRATE 145 MG PO SCH (09:00)
[2021-10-10] MEDS ORDERED: Escitalopram 10 MG Tab PO SCH (09:00)
[2021-10-10] MEDS ORDERED: Losartan 50 MG Tab PO SCH (09:00)
[2021-10-10] MEDS ORDERED: Potassium Chloride 20 MEQ Tab.ER PO ONE (09:50)
[2021-10-10] MEDS: Apixaban 5 MG Tab PO SCH (10:10)
[2021-10-10] MEDS: Carvedilol 6.25 MG Tab PO SCH (10:11)
[2021-10-10] MEDS ORDERED: Lisinopril 5 MG Tab PO SCH (10:30)
--- NOTE | 2021-10-10 11:19 | PCM.DCSUM1 ---
Discharge Summary - Hospital Course Free Text/Narrative:: Patient was admitted with subjective dyspnea. There was a diagnosis of bilateral small subsegmental pulmonary emboli. Patient was treated with initial dose of Lovenox 100 mg subcutaneous and then started on Eliquis 10 mg twice daily. Today she has resting pulse oximetry of 94% on room air but no subjective dyspnea. She is tolerating light exercise such as walking and other activities of daily living. She wishes to be discharged on anticoagulant thera py. Her son Zach Kana Rae, who is a family physician will be assisting in her aftercare. She has an appointment with Dr. 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 Diagnosis: Stroke: No Modified Augustine Scale: No Signif.Disability Despite Sympt.Able to Carry Out Usual Act./Duties Modified Frederick Scale Score: 1 - Discharge Data Discharge Date: 10/10/21 Discharge Disposition: Home, Self-Care 01 Condition: Good - Referral to Home Health Primary Care Physician: PCP None - Discharge Diagnosis/Problem(s) (1) Pulmonary embolism SNOMED Code(s): 37041383 ICD Code: I26.99 - OTHER PULMONARY EMBOLISM WITHOUT ACUTE COR PULMONALE Status: Acute Priority: High Current Visit: Yes Qualifiers: Pulmonary embolism type: other Chronicity: acute Acute cor pulmonale presence: without acute cor pulmonale Qualified Code(s): I26.99 - Other pulmonary embolism without acute cor pulmonale (2) Takotsubo cardiomyopathy SNOMED Code(s): 388284161 ICD Code: I51.81 - TAKOTSUBO SYNDROME Status: Acute Priority: High Current Visit: Yes (3) Elevated brain natriuretic peptide (BNP) level SNOMED Code(s): 314747539, 644085054 ICD Code: R79.89 - OTHER SPECIFIED ABNORMAL FINDINGS OF BLOOD CHEMISTRY Status: Acute Priority: Medium Current Visit: Yes Onset Date: ~10/09/21 (4) Hypokalemia due to loss of potassium SNOMED Code(s): 80853456 ICD Code: E87.6 - HYPOKALEMIA Status: Acute Priority: Medium Current Visit: Yes Onset Date: ~10/10/21 - Patient Summary/Data Hospital Course: Patient had uneventful hospital course. She had a moderate elevation in troponin thought to be due to the after math of her Takotsubo's. This dropped from 0.07 on admission to 0.0611-day later. A potassium level of 3.0 was seen and treated. - Patient Instructions Diet: Usual Diet as Tolerated Activity: Cough & Deep Breathe, No Strenuous Activities Driving: Do Not Drive Showering/Bathing: May Shower - Discharge Plan *PRESCRIPTION DRUG MONITORING PROGRAM REVIEWED*: Not Applicable *COPY OF PRESCRIPTION DRUG MONITORING REPORT IN PATIENT CARLA: Not Applicable Prescriptions/Med Rec: Potassium Chloride 20 meq PO BID 5 Days #10 tab.er.prt Home Medications: Home Meds Fenofibrate 145 mg PO DAILY 11/13/15 [History] Escitalopram Oxalate 10 mg PO DAILY 10/09/21 [History] Latanoprost/Pf [Latanoprost 0.005% Eye Drop] 1 dose PO DAILY 10/09/21 [History] Rosuvastatin [Crestor] 20 mg PO DAILY 10/09/21 [History] carvediloL [Carvedilol] 6.25 mg PO BIDMEALS 10/09/21 [History] lisinopriL [Lisinopril] 2.5 mg PO DAILY 10/09/21 [History] traZODone 50 mg PO BEDTIME 10/09/21 [History] Apixaban [Eliquis] 10 mg PO BID 6 Days #12 tablet 10/10/21 [Rx] Potassium Chloride 20 meq PO BID 5 Days #10 tab.er.prt 10/10/21 [Rx] traZODone 50 mg PO BEDTIME tablet 10/10/21 [Rx] Oxygen Therapy Mode: Room Air Patient Handouts: Pulmonary Embolism Referrals: PCP,None [Primary Care Provider] - Alexei Marin MD [Physician] - - Discharge Summary/Plan Comment DC Time >30 min.: Yes (45 min ) Total # of Minutes for Discharge Time: 45 - General Info Date of Service: 10/10/21 Admission Dx/Problem (Free Text: Admission Diagnosis/Problem Admission Diagnosis/Problem Pulmonary embolism Subjective Update: Remaining issues are for patient to see her PCP for continuation prescription of her Eliquis which after 7 days becomes 5 mg twice daily. She has an appointment with Dr. Contreras, our flight communications operator on November 04 for follow-up of her Takotsubo's condition. Functional Status: Reports: Pain Controlled - Review of Systems General: Reports: No Symptoms HEENT: Reports: No Symptoms Pulmonary: Reports: Shortness of Breath Cardiovascular: Reports: No Symptoms Gastrointestinal: Reports: No Symptoms Genitourinary: Reports: No Symptoms Musculoskeletal: Reports: No Symptoms Skin: Reports: No Symptoms Neurological: Reports: No Symptoms Psychiatric: Reports: No Symptoms. Denies: Confusion - Patient Data Vitals - Most Recent: Last Vital Signs Temp 97.2 F 10/10/21 08:00 Pulse 61 10/10/21 10:11 Resp 22 H 10/10/21 08:00 BP 102/49 L 10/10/21 10:11 Pulse Ox 93 L 10/10/21 08:00 Weight - Most Recent: 153 lb 1.6 oz I&O - Last 24 hours: Intake & Output 10/09/21 10/10/21 10/10/21 22:59 06:59 14:59 Intake Total 400 Output Total 200 Balance 200 Lab Results - Last 24 hrs: Laboratory Results - last 24 hr 10/09/21 10/09/21 10/09/21 Range/Units 10:37 10:37 10:53 Sodium 143 (136-145) mmol/L Potassium 3.5 (3.5-5.1) mmol/L Chloride 108 H (98-107) mmol/L Carbon Dioxide 19.7 L (21.0-32.0) mmol/L BUN 15 (7.0-18.0) mg/dL Creatinine 0.8 (0.6-1.0) mg/dL Est Cr Clr Drug Dosing 49.00 mL/min Estimated GFR (MDRD) > 60.0 ml/min Glucose 117 H (74-106) mg/dL Calcium 9.0 (8.5-10.1) mg/dL Magnesium 2.2 (1.8-2.4) mg/dL Troponin I 0.079 H* (0.000-0.056) ng/mL B-Natriuretic Peptide 1581 H (<100) PG/ML TSH, Ultra Sensitive 2.41 (0.36-3.74) uIU/mL Urine Color Urine Appearance Urine pH (5.0-8.0) Ur Specific [place] (1.001-1.035) Urine Protein (NEGATIVE) mg/dL Urine Glucose (UA) (NEGATIVE) mg/dL Urine Ketones (NEGATIVE) mg/dL Urine Occult Blood (NEGATIVE) Urine Nitrite (NEGATIVE) Urine Bilirubin (NEGATIVE) Urine Urobilinogen (<2.0) EU/dL Ur Leukocyte Esterase (NEGATIVE) Urine RBC (0-2/HPF) Urine WBC (0-5/HPF) Ur Epithelial Cells (NONE-FEW) Urine Bacteria (NEGATIVE) Urine Mucus (NONE-MOD) Urine Yeast SARS-CoV-2 RNA (JOHNNY) NEGATIVE (NEGATIVE) 10/09/21 10/10/21 Range/Units 12:47 05:38 Sodium 144 (136-145) mmol/L Potassium 3.0 L (3.5-5.1) mmol/L Chloride 108 H (98-107) mmol/L Carbon Dioxide 24.0 (21.0-32.0) mmol/L BUN 17 (7.0-18.0) mg/dL Creatinine 1.1 H (0.6-1.0) mg/dL Est Cr Clr Drug Dosing 35.64 mL/min Estimated GFR (MDRD) 47.3 ml/min Glucose 91 (74-106) mg/dL Calcium 8.2 L (8.5-10.1) mg/dL Magnesium 2.1 (1.8-2.4) mg/dL Troponin I 0.061 H* (0.000-0.056) ng/mL B-Natriuretic Peptide (<100) PG/ML TSH, Ultra Sensitive (0.36-3.74) uIU/mL Urine Color YELLOW Urine Appearance SLT CLOUDY Urine pH 5.5 (5.0-8.0) Ur Specific [place] >= 1.030 (1.001-1.035) Urine Protein TRACE H (NEGATIVE) mg/dL Urine Glucose (UA) NEGATIVE (NEGATIVE) mg/dL Urine Ketones NEGATIVE (NEGATIVE) mg/dL Urine Occult Blood TRACE-INTACT H (NEGATIVE) Urine Nitrite NEGATIVE (NEGATIVE) Urine Bilirubin SMALL H (NEGATIVE) Urine Urobilinogen 2.0 H (<2.0) EU/dL Ur Leukocyte Esterase TRACE H (NEGATIVE) Urine RBC 0-3 (0-2/HPF) Urine WBC 15-20 (0-5/HPF) Ur Epithelial Cells FEW (NONE-FEW) Urine Bacteria 1+ H (NEGATIVE) Urine Mucus MODERATE (NONE-MOD) Urine Yeast FEW SARS-CoV-2 RNA (JOHNNY) (NEGATIVE) Med Orders - Current: Current Medications Hydrocodone Bitart/Acetaminophen (Acetaminophen/Hydrocodone 325-5 Mg Tab) 1 tab PO Q4H PRN PRN Reason: Pain (moderate 4-6) Apixaban (Apixaban 5 Mg Tab) 10 mg PO BID [facility] Stop: 10/16/21 22:01 Last Admin: 10/10/21 10:10 Dose: 10 mg Documented by: Carvedilol (Carvedilol 6.25 Mg Tab) 6.25 mg PO BID [facility] Last Admin: 10/10/21 10:11 Dose: 6.25 mg Documented by: Escitalopram Oxalate (Escitalopram 10 Mg Tab) 10 mg PO DAILY [facility] Last Admin: 10/10/21 09:45 Dose: 10 mg Documented by: Lisinopril (Lisinopril 5 Mg Tab) 2.5 mg PO DAILY [facility] Losartan Potassium (Losartan 50 Mg Tab) 25 mg PO DAILY [facility] Last Admin: 10/10/21 09:45 Dose: 25 mg Documented by: Ondansetron HCl (Ondansetron 4 Mg/2 Ml Sdv) 4 mg IVPUSH Q4H PRN PRN Reason: NAUSEA Fenofibrate 145 Mg 1 each PO DAILY [facility] Last Admin: 10/10/21 10:12 Dose: Not Given Documented by: Latanoprost (Opthalmic Drops) 1 each EYEBOTH BEDTIME [facility] Last Admin: 10/10/21 05:56 Dose: Not Given Documented by: Polyethylene Glycol (Polyethylene Glycol 3350 Powder 17 Gm Packet) 17 gm PO DAILY PRN PRN Reason: Constipation Potassium Chloride (Potassium Chloride 20 Meq Tab.Er) 20 meq PO BID [facility] Stop: 10/15/21 09:01 Rosuvastatin Calcium (Rosuvastatin 10 Mg Tab) 20 mg PO BEDTIME [facility] Last Admin: 10/09/21 20:44 Dose: 20 mg Documented by: Temazepam (Temazepam 15 Mg Cap) 15 mg PO BEDTIME PRN PRN Reason: Sleep Last Admin: 10/09/21 20:43 Dose: 15 mg Documented by: Trazodone HCl (Trazodone 50 Mg Tab) 50 mg PO BEDTIME [facility] Last Admin: 10/09/21 20:44 Dose: 50 mg Documented by: Discontinued Medications Apixaban (Apixaban 5 Mg Tab) 10 mg PO BID [facility] Stop: 10/16/21 22:01 Enoxaparin Sodium (Enoxaparin 100 Mg/1 Ml Syringe) 75 mg 1 mg/kg (75 mg) SUBCUT STAT STA Stop: 10/09/21 13:29 Last Admin: 10/09/21 13:48 Dose: 75 mg Documented by: Furosemide (Furosemide 20 Mg/2 Ml Vial) 20 mg IVPUSH ONETIME ONE Stop: 10/09/21 13:33 Last Admin: 10/09/21 13:49 Dose: 20 mg Documented by: Furosemide (Furosemide 20 Mg/2 Ml Vial) 20 mg IVPUSH NOW ONE Stop: 10/09/21 15:31 Last Admin: 10/09/21 16:27 Dose: 20 mg Documented by: Iopamidol (Iopamidol 755 Mg/Ml 500 Ml Multipack Bottle) 75 ml IVPUSH ONETIME STA Stop: 10/09/21 18:49 Last Admin: 10/09/21 18:49 Dose: 75 ml Documented by: Lorazepam (Lorazepam 2 Mg/Ml Sdv) 0.5 mg IVPUSH ONETIME ONE Stop: 10/09/21 10:36 Last Admin: 10/09/21 10:50 Dose: 0.5 mg Documented by: Potassium Chloride (Potassium Chloride 20 Meq Tab.Er) 20 meq PO ONETIME ONE Stop: 10/10/21 09:51 Last Admin: 10/10/21 10:10 Dose: 20 meq Documented by: - Exam General: Reports: Alert, Oriented HEENT: Reports: Pupils Equal, Mucous Membr. Moist/[place] Neck: Reports: Supple Lungs: Reports: Clear to Auscultation, Normal Respiratory Effort Cardiovascular: Reports: Regular Rate, Regular Rhythm GI/Abdominal Exam: Soft, Non-Tender, No Organomegaly, No Distention (Female) Exam: Deferred Rectal (Female) Exam: Deferred Extremities: Normal Inspection, Normal Range of Motion, Non-Tender Skin: Reports: Warm, Dry, Intact Neurological: Reports: No New Focal Deficit Psy/Mental Status: Reports: Alert, Normal Affect, Normal Mood
[2021-10-10] MEDS ORDERED: Potassium Chloride 20 MEQ Tab.ER PO SCH (21:00)
== END 2021-10-10 11:35 | disposition home or self-care (01) ==
LOC: MW.ED 10:15 → INTOOBSV 14:44 → MW.MS 14:44
PROVIDERS: ADMIT Hospitalist; ATTEND Hospitalist
DX: I26.94 Multiple subsegmental thrombotic pulmonary emboli without acute cor pulmonale (principal); I50.30 Unspecified diastolic (congestive) heart failure; I42.9 Cardiomyopathy, unspecified; E78.2 Mixed hyperlipidemia; K21.9 Gastro-esophageal reflux disease without esophagitis; I51.81 Takotsubo syndrome; R79.89 Other specified abnormal findings of blood chemistry; I11.0 Hypertensive heart disease with heart failure; Z20.822 Contact with and (suspected) exposure to COVID-19; Z79.899 Other long term (current) drug therapy; Z79.82 Long term (current) use of aspirin
CPT/HCPCS: 36415; 71045; 71275; 80048; 81001; 83735; 83880; 84443; 84484; 85025; 85379; 85610; 85730; 93005; 96372; 96374; 96375; 99285; A9270; J1650; J1940; J2060; Q9967; U0002; 96376; G0378